=== PATIENT | male | born 1980 | race American Indian/Alaskan Native ===

== ENCOUNTER 2021-02-05 02:11 | Emergency (ER) | payer SELFPAY ==
[~2021-02-05] VITALS: Ht 167.6 cm; Wt 129.3 kg
--- NOTE | 2021-02-05 02:12 | NUR ---
PT BROUGHT TO BED 8 VIA [facility]
[2021-02-05 02:13] VITALS: BP 147/95
--- NOTE | 2021-02-05 02:13 | NUR ---
40 yo m biba from [facility] with c/c of syncope. a&o x3 at this time, with moments of confusion. medic stated pt was walking out of a door, eyes rolled back and pt syncoped. on route pt began to desated to low 90s and was placed on 3L, sated at 99%. pt consumed alcohol, denies drug use. pt denies head and neck pain. pt's speech is slurred. pt placed on monitor. vss. pt in stable condition. ermd at bedside. denies hx, rx, and allerg
[2021-02-05] MEDS ORDERED: NACL 0.9% 1,000 ML IV ONE (02:20)
--- NOTE | 2021-02-05 02:55 | NUR ---
pt desats down 80 while sleeping, ermd made aware. pt confirmed he has sleep apnea. on
[2021-02-05 03:14] LABS: BASOPHILS # (AUTO) 0.1 K/uL (0.00-0.22); BASOPHILS % (AUTO) 0.9 % (0.0-2.0); EOSINOPHILS # (AUTO) 0.2 K/uL (0-0.4); EOSINOPHILS % (AUTO) 1.7 % (0.0-4.0); HEMATOCRIT 51.5 % (36-52); HEMOGLOBIN 17.6 g/dL (12.0-18.0); LYMPHOCYTES # (AUTO) 4.1 K/uL (2.0-11.5); LYMPHOCYTES % (AUTO) 34.3 % (20.5-51.1); MEAN CORPUSCULAR HEMOGLOBIN 33 pg (27-31); MEAN CORPUSCULAR HGB CONC 34 g/dL (33-37); MEAN CORPUSCULAR VOLUME 96.6 fL (80-94); MONOCYTES # (AUTO) 0.8 K/uL (0.8-1.0); MONOCYTES % (AUTO) 6.5 % (1.7-9.3); NEUTROPHILS # (AUTO) 6.8 K/uL (1.8-7.7); NEUTROPHILS % (AUTO) 56.6 % (42.2-75.2); PLATELET COUNT (AUTO) 305 K/uL (140-450); RED BLOOD CELL COUNT(AUTO) 5.33 MIL/uL (4.20-6.10); RED CELL DISTRIBUTION WIDTH 13.7 % (11.6-13.7)
[2021-02-05 03:31] LABS: ALBUMIN 4.2 g/dL (3.4-5.0); ANION GAP 13.7 (8-16); CARBON DIOXIDE 26.7 mmol/L (21-32); MAGNESIUM 2.3 mg/dL (1.8-2.4); POTASSIUM 3.4 mmol/L (3.5-5.1); TOTAL BILIRUBIN 0.3 mg/dL (0.0-1.0)
--- NOTE | 2021-02-05 04:12 | NUR ---
pt is sleeping, opens eyes to touch. equal rise and fall of chest wall. vss. pt is in stable condition. all needs met at this time. side rails x2. bed locked in lowest position.
--- NOTE | 2021-02-05 04:40 | NUR ---
pt ambulated to and back to bed with steady gait.
--- NOTE | 2021-02-05 05:07 | NUR ---
demetria nam stated if pt is able to get a ride home he can leave.
--- NOTE | 2021-02-05 05:10 | NUR ---
pt is sitting up in bed looking for a ride.
--- NOTE | 2021-02-05 05:15 | NUR ---
pt was able to get an [employer].
--- NOTE | 2021-02-05 05:39 | NUR ---
ermd nam at bedside ensuring pt is able to walk steady.
[2021-02-05 05:42] VITALS: BP 118/73
--- NOTE | 2021-02-05 05:42 | NUR ---
Patient discharged with v/s stable. Written and verbal after care instructions given and explained. Patient verbalized understanding. Ambulatory with steady gait. All questions addressed prior to discharge. Advised to follow up with PMD.
== END 2021-02-05 05:42 | disposition home or self-care (01) ==
LOC: MED 02:11
DX: F10.129 Alcohol abuse with intoxication, unspecified (principal); R55 Syncope and collapse; Y90.8 Blood alcohol level of 240 mg/100 ml or more
CPT/HCPCS: 36415; 80053; 83735; 85025; 93005; 96360; 99284; G0482; J7030